=== PATIENT | female | born 1960 | race Caucasian/White ===

== ENCOUNTER 2017-05-11 06:42 | Emergency (ER) | payer BC ==
[2017-05-11] MEDS ORDERED: NS 0.9% 1000 ML* 1,000 ML IV ONE (07:37)
[2017-05-11 07:54] LABS: Hematocrit 44 % (35-47); Hemoglobin 14.8 g/dl (12.0-16.0); Mean Corpuscular HGB Conc 34 g/dl (31-36); Mean Corpuscular Hemoglobin 31 pg (27-31); Mean Corpuscular Volume 91 fL (80-97); Mean Platelet Volume 9 um3 (7.4-10.4); Red Blood Count 4.84 10^6/ul (4.0-5.4); Red Cell Distribution Width 13 % (10.5-15); White Blood Count 13.5 10^3/ul (3.5-10.8)
[2017-05-11 08:05] LABS: Albumin 4.2 g/dL (3.2-5.2); BUN/Creatinine Ratio 23.3 (8-20); C Reactive Protein 2.84 mg/L (< 5.00); Calcium 10.1 mg/dL (8.6-10.3); EGFR African American 88.1 (>60); EGFR Non-African American 68.5 (>60); Potassium 4.3 mmol/L (3.5-5.0); Total Bilirubin 0.5 mg/dL (0.2-1.0); Total Protein 7.2 g/dL (6.4-8.9)
--- NOTE | 2017-05-11 08:19 | RAD ---
INDICATION: Abdominal pain RIGHT flank and pelvis, hematuria, urinary frequency. COMPARISON: May 22, 2015 TECHNIQUE: Multidetector CT images were obtained from the lung bases to the ischial tuberosities. Evaluation of the viscera is limited without IV contrast. Multiplanar reformation. REPORT: Unremarkable visualized inferior thorax. Unremarkable unenhanced liver, gallbladder, pancreas, spleen. Negative for CT abnormality of the upper GI or small bowel. Postsurgical change of appendectomy. Mild colonic diverticulosis at the sigmoid colon without findings of diverticulitis. Negative for ascites, free air, hernias. Normal adrenal glands. No focal renal lesions evident. Negative for urolithiasis. Negative for RIGHT hydronephrosis. Borderline mild pelvicaliectasis of the LEFT kidney increased over the prior exam. Negative for ureteral dilatation or stone. Largely decompressed urinary bladder limiting assessment without suspicious finding. Innumerable pelvic phleboliths. Post hysterectomy. Unremarkable adnexal regions. Negative for lymphadenopathy. Normal diameter abdominal aorta and iliac arteries with mild calcific plaque. Partial physiologic distention of the IVC. Polyarticular degenerative arthropathy. Negative for suspicious focal osseous lesions. IMPRESSION: 1. Negative for urolithiasis. 2. Borderline mild pelvicaliectasis of the LEFT kidney new compared with the 2015 exam of uncertain etiology. 3. Post appendectomy and hysterectomy. 4. Mild colonic diverticulosis at the sigmoid colon without findings of diverticulitis.
[2017-05-11 08:56] LABS: Urine Bacteria Absent (Absent); Urine Bilirubin Negative (Negative); Urine Glucose Negative (Negative); Urine Nitrite Negative (Negative)
[2017-05-11] MEDS ORDERED: Sulfamethox/Trimethoprim DS 800/160* TAB PO ONE (09:15)
--- NOTE | 2017-05-11 09:21 | ED ---
Sarah Fay Edward, scribed for Tio Lynch MD on 05/11/17 at 0756 . GI/ HPI - HPI Summary HPI Summary: 56 y/o female presents to ED with frequent urination and blood in urine. Patient woke up this morning and had frequent urination at every 5 to 10 minutes - each time the patient felt a strong a strong urge to urinate, but was only able to urinate a small amount before stopping abruptly. There was blood in the urine each time she urinated this morning. Associated sx: ABD pain near the belly button and bilateral lower back pain, rated at a 4/10 but a 7/10 when she came in, and chronic issues with her bowel movements. Denies dysuria, fevers , chills, and vaginal discharge. PMHx UTI. - History of Current Complaint Chief Complaint: EDUrogenitalProblems Time Seen by Provider: 05/11/17 07:24 Stated Complaint: BLOOD IN URINE WITH CLOTS Hx Obtained From: Patient Onset/Duration: Started Hours Ago - This morning after getting up from bed Timing: Intermittent - Urination every 5-10 minutes with blood in urine Severity: Moderate Current Severity: Mild Pain Intensity: 6 Location of Pain: Diffuse - ABD and bilateral back pain, Suprapubic Associated Signs and Symptoms: Positive: Back Pain - Bilateral lower back pain, Abdominal Pain - Near belly button, Other: - No vaginal discharge. Chronic issues with bowel movements. Negative: Fever, Dysuria, Chills - Allergy/Home Medications Allergies/Adverse Reactions: Allergies Allergy/AdvReac Type Severity Reaction Status Date / Time No Known Allergies Allergy Verified 05/11/17 06:59 PMH/Surg Hx/FS Hx/Imm Hx Previously Healthy: Yes Endocrine/Hematology History: Denies: Hx Diabetes, Hx Thyroid Disease Cardiovascular History: Denies: Hx Congestive Heart Failure, Hx Hypertension, Hx Pacemaker/ICD Respiratory History: Denies: Hx Asthma, Hx Chronic Obstructive Pulmonary Disease (COPD) GI History: Reports: Hx Obstructive Bowel - current dx Denies: Hx Ulcer History: Denies: Hx Dialysis, Hx Renal Disease Sensory History: Reports: Hx Contacts or Glasses Denies: Hx Hearing Aid Opthamlomology History: Reports: Hx Contacts or Glasses Psychiatric History: Denies: Hx Panic Disorder - Cancer History Hx Chemotherapy: No Hx Radiation Therapy: No - Surgical History Surgery Procedure, Year, and Place: 2002 hysterectomy. abdominoplasty. appy Infectious Disease History: No Infectious Disease History: Denies: Hx Clostridium Difficile, Hx Hepatitis, Hx Human Immunodeficiency Virus (HIV), Hx of Known/Suspected MRSA, Traveled Outside the [place] in Last 30 Days - Family History Known Family History: Positive: Other - Sister - pelvic pain removed with abdominal hysterectomy - Social History Alcohol Use: Occasionally Substance Use Type: Reports: None Smoking Status (MU): Former Smoker Review of Systems Constitutional: Negative Negative: Fever, Chills Eyes: Negative ENT: Negative Cardiovascular: Negative Respiratory: Negative Positive: Abdominal Pain, Other - Chronic bowel movements Positive: hematuria, urgency, other - frequent urination every 5-10 minutes. Negative: dysuria, discharge Positive: Myalgia - Bilateral lower back pain Skin: Negative Neurological: Negative Psychological: Normal All Other Systems Reviewed And Are Negative: Yes Physical Exam Triage Information Reviewed: Yes Vital Signs On Initial Exam: Initial Vitals Temp Pulse Resp BP Pulse Ox 97.8 F 92 18 140/78 100 05/11/17 06:48 05/11/17 06:48 05/11/17 06:48 05/11/17 06:48 05/11/17 06:48 Vital Signs Reviewed: Yes Appearance: Positive: Well-Appearing, No Pain Distress, Well-Nourished Skin: Positive: Warm, Skin Color Reflects Adequate Perfusion, Dry Head/Face: Positive: Normal Head/Face Inspection Eyes: Positive: Normal, EOMI, ROXANNA ENT: Positive: Normal ENT inspection Neck: Positive: Supple, Nontender Respiratory/Lung Sounds: Positive: Clear to Auscultation, Breath Sounds Present Cardiovascular: Positive: RRR Abdomen Description: Positive: Soft, Other: - Mild diffuse ABD tenderness and suprapubic tenderness. No rebound Bowel Sounds: Positive: Present Musculoskeletal: Positive: Normal - No CVA tenderness, Strength/ROM Intact Neurological: Positive: Normal, Sensory/Motor Intact, Alert, Oriented to Person Place, Time Psychiatric: Positive: Normal, Affect/Mood Appropriate - Odalis Coma Scale Coma Scale Total: 15 Diagnostics - Vital Signs Vital Signs Temp Pulse Resp BP Pulse Ox 05/11/17 07:30 83 136/79 96 05/11/17 07:00 86 11 125/85 98 05/11/17 06:58 84 12 99 05/11/17 06:57 97.8 F 90 16 130/83 98 05/11/17 06:48 97.8 F 92 18 140/78 100 - Laboratory Lab Results: Lab Results 05/11/17 05/11/17 05/11/17 Range/Units 07:08 07:44 07:44 WBC 13.5 H (3.5-10.8) 10^3/ul RBC 4.84 (4.0-5.4) 10^6/ul Hgb 14.8 (12.0-16.0) g/dl Hct 44 (35-47) % MCV 91 (80-97) fL MCH 31 (27-31) pg MCHC 34 (31-36) g/dl RDW 13 (10.5-15) % Plt Count 225 (150-450) 10^3/ul MPV 9 (7.4-10.4) um3 Neut % (Auto) 84.3 H (38-83) % Lymph % (Auto) 8.3 L (25-47) % [place] % (Auto) 6.1 (1-9) % Eos % (Auto) 0.8 (0-6) % Baso % (Auto) 0.5 (0-2) % Absolute Neuts (auto) 11.4 H (1.5-7.7) 10^3/ul Absolute Lymphs (auto) 1.1 (1.0-4.8) 10^3/ul Absolute Monos (auto) 0.8 (0-0.8) 10^3/ul Absolute Eos (auto) 0.1 (0-0.6) 10^3/ul Absolute Basos (auto) 0.1 (0-0.2) 10^3/ul Absolute Nucleated RBC 0 10^3/ul Nucleated RBC % 0 Sodium 137 (133-145) mmol/L Potassium 4.3 (3.5-5.0) mmol/L Chloride 101 (101-111) mmol/L Carbon Dioxide 29 (22-32) mmol/L Anion Gap 7 (2-11) mmol/L BUN 20 (6-24) mg/dL Creatinine 0.86 (0.51-0.95) mg/dL Est GFR ( Amer) 88.1 (>60) Est GFR (Non-Af Amer) 68.5 (>60) BUN/Creatinine Ratio 23.3 H (8-20) Glucose 92 (70-100) mg/dL Calcium 10.1 (8.6-10.3) mg/dL Total Bilirubin 0.50 (0.2-1.0) mg/dL AST 25 (13-39) U/L ALT 20 (7-52) U/L Alkaline Phosphatase 47 (34-104) U/L C-Reactive Protein 2.84 (< 5.00) mg/L Total Protein 7.2 (6.4-8.9) g/dL Albumin 4.2 (3.2-5.2) g/dL Globulin 3.0 (2-4) g/dL Albumin/Globulin Ratio 1.4 (1-3) Urine Color Kalie Urine Appearance Cloudy Urine pH 7.0 (5-9) Ur Specific [place] 1.026 (1.010-1.030) Urine Protein 2+(100 mg/dl) H (Negative) Urine Ketones Negative (Negative) Urine Blood 3+ H (Negative) Urine Nitrate Negative (Negative) Urine Bilirubin Negative (Negative) Urine Urobilinogen Negative (Negative) Ur Leukocyte Esterase 3+ H (Negative) Urine WBC (Auto) 3+(>20/hpf) H (Absent) Urine RBC (Auto) 3+(>10/hpf) H (Absent) Ur Transition Epith Cell Present H (Absent) Urine Bacteria Absent (Absent) Urine Glucose Negative (Negative) Result Diagrams: 05/11/17 07:44 05/11/17 07:44 Lab Statement: Any lab studies that have been ordered have been reviewed, and results considered in the medical decision making process. - CT ABD/Pelvis CT CT Interpretation: Positive (See Comments) - 1. Negative for urolithiasis. 2. Borderline mild pelvicaliectasis of the LEFT kidney new compared with the 2015 exam of uncertain etiology. 3. Post appendectomy and hysterectomy. 4. Mild colonic diverticulosis at the sigmoid colon without findings of diverticulitis. CT Interpretation Completed By: Radiologist JADEN Course/Dx - Course Course Of Treatment: NO CRITICAL CARE TIME. DISCUSSED RESULTS WITH PATIENT. SHE DENIES C/O STI. PAIN FREE AT DISCHARGE. WILL TREAT FOR UTI; F/U WITH PMD, RETURN TO ED IF WORSE. DISCHARGE HOME STABLE. - Diagnoses Provider Diagnoses: Hematuria, UTI (urinary tract infection), Abdominal pain Discharge - Discharge Plan Condition: Stable Disposition: HOME Prescriptions: Sulfamethox/Trimethoprim DS* [Bactrim DS 800/160 TAB*] 1 tab PO BID #13 tab Patient Education Materials: Hematuria (ED), Urinary Tract Infection in Women ( ED), Abdominal Pain (ED) Referrals: Lorrie Ordaz NP [Primary Care Provider] - Additional Instructions: FOLLOW UP WITH YOUR DOCTOR. RETURN TO THE EMERGENCY DEPARTMENT FOR ANY WORSENING OF YOUR CONDITION; PAIN, FEVER, YOU FEEL ILL OR QUESTIONS OR CONCERNS. The documentation as recorded by the Sarah trimble Edward accurately reflects the service I personally performed and the decisions made by me, Tio Lynch MD.
[2017-05-11] MEDS ORDERED: Morphine INJ* 4 MG/ML 1 ML SYRINGE IV ONE (09:22)
[2017-05-11 09:31] VITALS: BP 126/85
--- NOTE | 2017-05-13 09:34 | PN ---
Progress Note - Progress Note Date of Service: 05/13/17 Note: Patient urine culture grew E coli 10-25,000. pt placed on bactrim will wait final culture.
--- NOTE | 2017-05-14 08:38 | PN ---
Progress Note - Progress Note Date of Service: 05/14/17 Note: patient placed on bactrim which final culture shows is sensitive to.
== END 2017-05-11 09:33 | disposition home or self-care (01) ==
LOC: ED 06:42
DX: N39.0 Urinary tract infection, site not specified (principal); R31.9 Hematuria, unspecified; R10.33 Periumbilical pain; Z87.440 Personal history of urinary (tract) infections; Z90.710 Acquired absence of both cervix and uterus; Z87.891 Personal history of nicotine dependence
CPT/HCPCS: 36415; 74176; 80053; 81003; 81015; 85025; 86140; 87077; 87086; 87186; 96374; 99283; A9270-GY

== ENCOUNTER 2017-08-29 08:48 | Emergency (ER) | payer BC ==
[2017-08-29] MEDS ORDERED: Aspirin Low Dose CHEW TAB* 81 MG PO ONE (10:31)
[2017-08-29] MEDS ORDERED: Nitroglycerin TAB 0.4 MG* 0.4 MG TAB SL ONE (10:31)
[2017-08-29 11:06] LABS: Hemoglobin 15.2 g/dl (12.0-16.0); Mean Corpuscular Hemoglobin 32 pg (27-31); Red Cell Distribution Width 13 % (10.5-15); White Blood Count 7.3 10^3/ul (3.5-10.8)
[2017-08-29 11:08] LABS: Hematocrit 44 % (35-47); Mean Corpuscular HGB Conc 35 g/dl (31-36); Mean Corpuscular Volume 91 fL (80-97); Mean Platelet Volume 9 um3 (7.4-10.4); Red Blood Count 4.79 10^6/ul (4.0-5.4)
[2017-08-29 11:09] LABS: Comments Flag Yes
--- NOTE | 2017-08-29 11:09 | RAD ---
HISTORY: Syncope and chest pain COMPARISONS: September 28, 2004 VIEWS: 4: Frontal dual-energy and lateral views of the chest. FINDINGS: CARDIOMEDIASTINAL SILHOUETTE: The cardiomediastinal silhouette is normal. GAGAN: The gagan are normal. PLEURA: The costophrenic angles are sharp. No pleural abnormalities are noted. LUNG PARENCHYMA: The lungs are clear. ABDOMEN: The upper abdomen is clear. There is no subphrenic gas. BONES AND SOFT TISSUES: No bone or soft tissue abnormalities are noted. OTHER: None. IMPRESSION: NO ACTIVE CARDIOPULMONARY DISEASE.
[2017-08-29 11:43] LABS: Albumin 4.7 g/dL (3.2-5.2); BUN/Creatinine Ratio 12.5 (8-20); Calcium 10.5 mg/dL (8.6-10.3); EGFR African American 85.5 (>60); EGFR Non-African American 66.5 (>60); Globulin 3.1 g/dL (2-4); Magnesium 2.3 mg/dL (1.9-2.7); Potassium 3.5 mmol/L (3.5-5.0); Total Bilirubin 0.6 mg/dL (0.2-1.0); Total Protein 7.8 g/dL (6.4-8.9)
[2017-08-29] MEDS ORDERED: Meclizine TAB* 12.5 MG PO ONE (11:52)
[2017-08-29] MEDS ORDERED: Ketorolac INJ* 30 MG/ML 1 ML VIAL IV PUSH ONE (11:52)
[2017-08-29] MEDS ORDERED: NS 0.9% 250 ML* 250 ML IV ONE (14:22)
[2017-08-29 15:06] VITALS: BP 143/84
--- NOTE | 2017-08-29 18:44 | ED ---
Warner Fay SooYoung, scribed for Rogers Lerma MD on 08/29/17 at 1038 . 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 Associated sx: dizziness/ lightheadedness. She's unsure if she was diaphoretic because she has hot flashes. Denies n/v, SOB. No prev episodes. PMHx: HTN. - History of Current Complaint Chief Complaint: EDChestPainROMI Time Seen by Provider: 08/29/17 10:31 Hx Obtained From: Patient Onset/Duration: Started Hours Ago - onset approx 0800, Still Present Current Severity: None Pain Intensity: 0 Pain Scale Used: 0-10 Numeric Chest Pain Location: Discrete at: - sub-sternal Associated Signs and Symptoms: Positive: Dizziness, Lightheadedness. Negative: Shortness of Breath, Vomiting, Other: - neg: nausea - Allergy/Home Medications Allergies/Adverse Reactions: Allergies Allergy/AdvReac Type Severity Reaction Status Date / Time No Known Allergies Allergy Verified 05/11/17 06:59 PMH/Surg Hx/FS Hx/Imm Hx Previously Healthy: No Endocrine/Hematology History: Denies: Hx Diabetes, Hx Thyroid Disease Cardiovascular History: Reports: Hx Hypertension Denies: Hx Congestive Heart Failure, Hx Pacemaker/ICD Respiratory History: Denies: Hx Asthma, Hx Chronic Obstructive Pulmonary Disease (COPD) GI History: Reports: Hx Obstructive Bowel - current dx Denies: Hx Ulcer History: Denies: Hx Dialysis, Hx Renal Disease Sensory History: Reports: Hx Contacts or Glasses Denies: Hx Hearing Aid Opthamlomology History: Reports: Hx Contacts or Glasses Psychiatric History: Denies: Hx Panic Disorder - Cancer History Hx Chemotherapy: No Hx Radiation Therapy: No - Surgical History Surgery Procedure, Year, and Place: 2003 hysterectomy. abdominoplasty. appy Infectious Disease History: No Infectious Disease History: Denies: Hx Clostridium Difficile, Hx Hepatitis, Hx Human Immunodeficiency Virus (HIV), Hx of Known/Suspected MRSA, Traveled Outside the [place] in Last 30 Days - Family History Known Family History: Positive: Other - Sister - pelvic pain removed with abdominal hysterectomy - Social History Occupation: Employed Full-time Lives: With Family Alcohol Use: Occasionally Substance Use Type: Reports: None Hx Tobacco Use: Yes Smoking Status (MU): Former Smoker Review of Systems Positive: Chest Pain Negative: Shortness Of Breath Negative: Vomiting, Nausea Neurological: Other - pos: dizziness/lightheadedness All Other Systems Reviewed And Are Negative: Yes Physical Exam - Summary Physical Exam Summary: VITAL SIGNS: Reviewed. GENERAL: Patient is a well-developed and nourished (MALE OR FEMALE) who is lying comfortable in the stretcher. Patient is not in any acute respiratory distress. HEAD AND FACE: No signs of trauma. No ecchymosis, hematomas or skull depressions. No sinus tenderness. EYES: PERRLA, EOMI x 2, No injected conjunctiva, no nystagmus. EARS: Hearing grossly intact. Ear canals and tympanic membranes are within normal limits. MOUTH: Oropharynx within normal limits. NECK: Supple, trachea is midline, no adenopathy, no JVD, no carotid bruit, no c- spine tenderness, neck with full ROM. CHEST: Symmetric. Pin point tenderness on R-side of Chest. LUNGS: Clear to auscultation bilaterally. No wheezing or crackles. CVS: Regular rate and rhythm, S1 and S2 present, no murmurs or gallops appreciated. ABDOMEN: Soft, non-tender. No signs of distention. No rebound, no guarding, and no masses palpated. Bowel sounds are normal. EXTREMITIES: FROM in all major joints, no edema, no cyanosis or clubbing. NEURO: Alert and oriented x 3. No acute neurological deficits. Speech is normal and follows commands. SKIN: Dry and warm Triage Information Reviewed: Yes Vital Signs On Initial Exam: Initial Vitals Temp Pulse Resp BP Pulse Ox 97.7 F 72 20 150/87 100 08/29/17 08:50 08/29/17 08:50 08/29/17 08:50 08/29/17 08:50 08/29/17 08:50 Vital Signs Reviewed: Yes Diagnostics - Vital Signs Vital Signs Temp Pulse Resp BP Pulse Ox 08/29/17 08:50 97.7 F 72 20 150/87 100 - Laboratory Lab Results: Lab Results 08/29/17 08/29/17 08/29/17 Range/Units 10:25 10:25 10:25 WBC 7.3 (3.5-10.8) 10^3/ul RBC 4.79 (4.0-5.4) 10^6/ul Hgb 15.2 (12.0-16.0) g/dl Hct 44 (35-47) % MCV 91 (80-97) fL MCH 32 H (27-31) pg MCHC 35 (31-36) g/dl RDW 13 (10.5-15) % Plt Count 243 (150-450) 10^3/ul MPV 9 (7.4-10.4) um3 Neut % (Auto) 71.7 (38-83) % Lymph % (Auto) 20.2 L (25-47) % [place] % (Auto) 5.9 (1-9) % Eos % (Auto) 1.6 (0-6) % Baso % (Auto) 0.6 (0-2) % Absolute Neuts (auto) 5.2 (1.5-7.7) 10^3/ul Absolute Lymphs (auto) 1.5 (1.0-4.8) 10^3/ul Absolute Monos (auto) 0.4 (0-0.8) 10^3/ul Absolute Eos (auto) 0.1 (0-0.6) 10^3/ul Absolute Basos (auto) 0 (0-0.2) 10^3/ul Absolute Nucleated RBC 0 10^3/ul Nucleated RBC % 0.1 D-Dimer, Quantitative (Less Than 230) ng/mL Sodium 138 (133-145) mmol/L Potassium 3.5 (3.5-5.0) mmol/L Chloride 103 (101-111) mmol/L Carbon Dioxide 26 (22-32) mmol/L Anion Gap 9 (2-11) mmol/L BUN 11 (6-24) mg/dL Creatinine 0.88 (0.51-0.95) mg/dL Est GFR ( Amer) 85.5 (>60) Est GFR (Non-Af Amer) 66.5 (>60) BUN/Creatinine Ratio 12.5 (8-20) Glucose 79 (70-100) mg/dL Calcium 10.5 H (8.6-10.3) mg/dL Magnesium 2.3 (1.9-2.7) mg/dL Total Bilirubin 0.60 (0.2-1.0) mg/dL AST 22 (13-39) U/L ALT 16 (7-52) U/L Alkaline Phosphatase 50 (34-104) U/L Total Creatine Kinase 89 (10-223) U/L CK-MB (CK-2) 2.6 (0.6-6.3) ng/mL Troponin I 0.00 (<0.04) ng/mL Total Protein 7.8 (6.4-8.9) g/dL Albumin 4.7 (3.2-5.2) g/dL Globulin 3.1 (2-4) g/dL Albumin/Globulin Ratio 1.5 (1-3) TSH 2.74 (0.34-5.60) mcIU/mL 08/29/17 08/29/17 Range/Units 10:25 13:38 WBC (3.5-10.8) 10^3/ul RBC (4.0-5.4) 10^6/ul Hgb (12.0-16.0) g/dl Hct (35-47) % MCV (80-97) fL MCH (27-31) pg MCHC (31-36) g/dl RDW (10.5-15) % Plt Count (150-450) 10^3/ul MPV (7.4-10.4) um3 Neut % (Auto) (38-83) % Lymph % (Auto) (25-47) % [place] % (Auto) (1-9) % Eos % (Auto) (0-6) % Baso % (Auto) (0-2) % Absolute Neuts (auto) (1.5-7.7) 10^3/ul Absolute Lymphs (auto) (1.0-4.8) 10^3/ul Absolute Monos (auto) (0-0.8) 10^3/ul Absolute Eos (auto) (0-0.6) 10^3/ul Absolute Basos (auto) (0-0.2) 10^3/ul Absolute Nucleated RBC 10^3/ul Nucleated RBC % D-Dimer, Quantitative < 200 (Less Than 230) ng/mL Sodium (133-145) mmol/L Potassium (3.5-5.0) mmol/L Chloride (101-111) mmol/L Carbon Dioxide (22-32) mmol/L Anion Gap (2-11) mmol/L BUN (6-24) mg/dL Creatinine (0.51-0.95) mg/dL Est GFR ( Amer) (>60) Est GFR (Non-Af Amer) (>60) BUN/Creatinine Ratio (8-20) Glucose (70-100) mg/dL Calcium (8.6-10.3) mg/dL Magnesium (1.9-2.7) mg/dL Total Bilirubin (0.2-1.0) mg/dL AST (13-39) U/L ALT (7-52) U/L Alkaline Phosphatase (34-104) U/L Total Creatine Kinase (10-223) U/L CK-MB (CK-2) (0.6-6.3) ng/mL Troponin I 0.00 (<0.04) ng/mL Total Protein (6.4-8.9) g/dL Albumin (3.2-5.2) g/dL Globulin (2-4) g/dL Albumin/Globulin Ratio (1-3) TSH (0.34-5.60) mcIU/mL Result Diagrams: 08/29/17 10:25 08/29/17 10:25 Lab Statement: Any lab studies that have been ordered have been reviewed, and results considered in the medical decision making process. - Radiology CXR Xray Interpretation: No Acute Changes - IMPRESSION: No active cardiopulmonary dz. ED physician has reviewed this radiology report and agrees Radiology Interpretation Completed By: Radiologist - EKG 0855 Cardiac Rate: NL - 67bpm EKG Rhythm: Sinus Rhythm ST Segment: Normal Ectopy: None 1228 Cardiac Rate: Bradycardia - 58 bpm EKG Rhythm: Sinus Bradycardia ST Segment: Normal Re-Evaluation - Re-Evaluation 1 Re-Evaluation Time: 15:07 Change: Improved Comment: Discussing results and plans to dispo with pt. Pt voiced understanding. 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 Associated sx: dizziness/ lightheadedness. She's unsure if she was diaphoretic because she has hot flashes. Denies n/v, SOB. No prev episodes. PMHx: HTN. Bloodwork and labs are without significant abnormality. Trop 1 is 0.00 and four hours later trop 2 is also 0.00. D-dimer is negative. Therefore, I don't believe pt has acute coronary syndrome or PE. Pt given toradol for pain, and sx improved.Therefore, I believe pt's pain is musculoskeletal, will d/c home to f/u with PCP. A&Ox3, hemodynamically stable. I discussed all the findings and test results with the patient. Patient was instructed to return to the emergency room immediately if any of the symptoms return or worsens. Plan of care was discussed with the patient and understands and agrees. All questions were answered at patient satisfaction. There were no further complaints or concerns. - Chest Pain Differential Diagnosis/HQI/PQRI: Acute OR, ACS, Angina, CHF, Chest Wall, GI Disease, Lower Respiratory Infection - Diagnoses Provider Diagnoses: Atypical chest pain Discharge - Discharge Plan Condition: Stable Disposition: HOME Patient Education Materials: Chest Pain (ED) Referrals: Lorrie Ordaz NP [Primary Care Provider] - 3 Days Additional Instructions: Follow up with your primary care provider in 3 days. Please return to the ED if you experience new or worsening symptoms. The documentation as recorded by the Warner trimble SooYoung accurately reflects the service I personally performed and the decisions made by me, Rogers Lerma MD.
== END 2017-08-29 15:26 | disposition home or self-care (01) ==
LOC: ED 08:48
DX: R07.89 Other chest pain (principal); R42 Dizziness and giddiness; Z87.891 Personal history of nicotine dependence
CPT/HCPCS: 36415; 71020; 80053; 82550; 82553; 83735; 84443; 84484; 85025; 85379; 93005; 96374; 99284; A9270-GY; J1885